=== PATIENT | female | born 1985 | race Caucasian/White ===

== ENCOUNTER 2020-10-05 05:15 | Day surgery (SDC) | payer OTHER ==
[~2020-10-05 05:15] MED LIST: TYLENOL-CODEINE1 TAB PO
[2020-10-05] MEDS ORDERED: Tylenol #3 PO (11:16)
[2020-10-05] MEDS ORDERED: MORGIDOX100 MG PO (11:16)
== END 2020-10-05 15:20 | disposition home or self-care (01) ==
LOC: CIR.AMB 05:15
PROVIDERS: ATTEND Obstetrics & Gynecology
DX: D25.0 Submucous leiomyoma of uterus (principal); N84.0 Polyp of corpus uteri; Z20.828 Contact with and (suspected) exposure to other viral communicable diseases